=== PATIENT | male | born 1965 | race Hispanic/Latino ===

== ENCOUNTER 2018-02-06 18:47 | Emergency (ER) | payer BC ==
[2018-02-06 19:51] LABS: #Basophils 0.1 thou/uL (0.0-0.2); #Lymphocytes 2.5 thou/uL (1.20-3.40); #Monocytes 0.7 thou/uL (0.11-0.59); #Neutrophils 7.1 thou/uL (1.40-6.50); %Basophils 0.9 % (0.0-1.0); %Eosinophils 0.5 % (0.0-10.0); %Lymphocytes 24.2 % (21.0-51.0); %Monocytes 6.6 % (0.0-10.0); %Neutrophils 67.8 % (42.0-75.0); Hemoglobin 13.7 g/dL (14.0-18.0); Mean Corpuscular HGB CONC 35.1 g/dL (32.0-36.0); Mean Corpuscular Hemoglobin 31.6 pg (27.0-31.0); Mean Corpuscular Volume 90.1 fL (78.0-98.0); Mean Platelet Volume 6.9 fL (7.4-10.4); Platelet Count 242 thou/uL (130-400); RBC Distribution Width 10.7 % (11.5-14.5); Red Blood Cell (RBC) Count 4.34 mill/uL (4.70-6.10); White Blood Cell (WBC) Count 10.4 thou/uL (4.8-10.8)
[2018-02-06 20:03] LABS: Anion Gap 13 mmol/L (10-20); BUN (Urea Nitrogen) 16 mg/dL (8.4-25.7); Calc. Creatinine Clearance 0 mL/min (70-130); Calcium 9.4 mg/dL (7.8-10.44); Carbon Dioxide 25 mmol/L (22-29); Chloride 104 mmol/L (98-107); Estimated GFR-MDRD 88; Glucose 95 mg/dL (70-105); Potassium 4.1 mmol/L (3.5-5.1); Sodium 138 mmol/L (136-145)
[2018-02-06] MEDS ORDERED: Sodium Chloride 0.9% 100 ML ONE (21:04)
[2018-02-06] MEDS ORDERED: cefTRIAXone\\ROCEPHIN 2 GM VIAL ONE (21:04)
--- NOTE | 2018-02-06 21:15 | ULT ---
BILATERAL LOWER EXTREMITY VENOUS DOPPLER 02/06/18 HISTORY: Lower extremity pain and edema. COMPARISON: None. TECHNIQUE: Real time canas scale, color doppler and spectral analysis bilateral lower extremity venous system was performed. Common femoral, femoral, proximal portions greater saphenous and deep femoral veins as we ll as the popliteal and posterior tibial veins are interrogated. There is normal flow, augmentation and compression. IMPRESSION: No deep venous thrombosis. POS: JOSE MANUEL
== END 2018-02-06 22:13 | disposition home or self-care (01) ==
LOC: SCSER 18:47
DX: L03.116 Cellulitis of left lower limb (principal); K21.9 Gastro-esophageal reflux disease without esophagitis; Z87.442 Personal history of urinary calculi
CPT/HCPCS: 80048; 83605; 85025; 85379; 87040; 93970; 96365; J0696; J7050

== ENCOUNTER 2018-02-27 10:29 | Outpatient (CLI) | payer BC ==
--- NOTE | 2018-02-27 11:23 | RAD ---
LEFT KNEE 4 VIEWS: HISTORY: Acute left knee pain. FINDINGS/IMPRESSION: No fracture, dislocation, or bony destruction is identified. A joint effusion is present. POS: JORGE
== END 2018-02-27 10:30 | disposition home or self-care (01) ==
LOC: BICRAD 10:29
PROVIDERS: ATTEND Family Medicine
DX: M25.562 Pain in left knee (principal); M25.462 Effusion, left knee

== ENCOUNTER 2019-07-27 07:23 | Emergency (ER) | payer BC ==
[2019-07-27] MEDS ORDERED: Ondansetron ODT 4 MG TAB ONE (07:35)
[2019-07-27 08:01] LABS: #Basophils 0.1 thou/uL (0.0-0.2); #Eosinphils 0.1 thou/uL (0.0-0.7); #Lymphocytes 2.3 thou/uL (1.20-3.40); #Monocytes 0.3 thou/uL (0.11-0.59); #Neutrophils 2.4 thou/uL (1.40-6.50); %Basophils 1.6 % (0.0-1.0); %Eosinophils 1.4 % (0.0-10.0); %Lymphocytes 45.1 % (21.0-51.0); %Monocytes 5.2 % (0.0-10.0); %Neutrophils 46.8 % (42.0-75.0); Hemoglobin 14.6 g/dL (14.0-18.0); Mean Corpuscular HGB CONC 34.5 g/dL (32.0-36.0); Mean Corpuscular Hemoglobin 32.6 pg (27.0-31.0); Mean Corpuscular Volume 94.4 fL (78.0-98.0); Mean Platelet Volume 7.3 fL (7.4-10.4); Platelet Count 246 thou/uL (130-400); RBC Distribution Width 12.2 % (11.5-14.5); Red Blood Cell (RBC) Count 4.47 mill/uL (4.70-6.10); White Blood Cell (WBC) Count 5.2 thou/uL (4.8-10.8)
[2019-07-27] MEDS ORDERED: Ketorolac Tromethamine 30 MG/ML VIAL ONE (08:11)
[2019-07-27 08:16] LABS: ALT (SGPT) 40 U/L (8-55); AST (SGOT) 23 U/L (5-34); Albumin 4.3 g/dL (3.5-5.0); Alkaline Phosphatase 111 U/L (40-110); Anion Gap 10 mmol/L (10-20); BUN (Urea Nitrogen) 15 mg/dL (8.4-25.7); Bilirubin, Total 0.7 mg/dL (0.2-1.2); Calc. Creatinine Clearance 0 mL/min (70-130); Carbon Dioxide 25 mmol/L (22-29); Chloride 105 mmol/L (98-107); Estimated GFR-MDRD 76; Glucose 145 mg/dL (70-105); Potassium 4.3 mmol/L (3.5-5.1); Protein, Total 7.3 g/dL (6.0-8.3); Sodium 136 mmol/L (136-145)
[2019-07-27 08:29] LABS: Bacteria/HPF None Seen HPF (None Seen); Bilirubin Negative (Negative); Blood, Urine 1+ (Negative); Clarity Clear (Clear); Glucose, Urine (Dipstick) 30 mg/dL (Negative); Leukocyte Negative Leu/uL (Negative); Nitrite Negative (Negative); Protein, Urine (Dipstick) 20 mg/dL (Neg-Trace); RBC/HPF 0-3 HPF (0-3); Squamous Epithelial 0-3 HPF (0-3); Urobilinogen Normal mg/dL (Less than 2); WBC/HPF 0-3 HPF (0-3)
--- NOTE | 2019-07-27 08:39 | CT ---
CT OF THE ABDOMEN AND PELVIS WITHOUT CONTRAST: Date: 07/27/2019 INDICATION: History of left-sided flank pain. COMPARISON: Prior exam dated 11/12/2016. FINDINGS: There is mild bibasilar atelectasis. There is a stable small cyst within the left hepatic lobe. Gallbladder, pancreas, and adrenal glands are normal appearing. Spleen is normal appearing. There is a 2.1 cm suspected cyst within the superior pole of the left kidney. There is mild left hydr onephrosis. There is a 4.6 mm stone in the proximal left ureter. No additional renal or ureteral calc ulus is evident. Unopacified right kidney is unremarkable appearing. No hydronephrosis is evident. Th e bladder is partially decompressed. There are scattered diverticula involving the colon without evidence of active diverticulitis. There is a normal appendix in the right lower quadrant. No free fluid is evident. The prostate is enlarged. No definite acute osseous abnormality is evident. IMPRESSION: 1. 4.6 mm proximal left ureteral calculus and mild left hydronephrosis. 2. Left renal cyst. 3. Small left hepatic lobe cyst. 4. Prostate enlargement. 5. Colonic diverticulosis. POS: OFF
[2019-07-27] MEDS ORDERED: Morphine 4 MG/ML VIAL ONE (09:05)
[2019-07-27] MEDS ORDERED: Ondansetron PF 4 MG/2 ML Vial ONE (09:05)
== END 2019-07-27 10:32 | disposition home or self-care (01) ==
LOC: ERS 07:23
DX: N13.2 Hydronephrosis with renal and ureteral calculous obstruction (principal); N28.1 Cyst of kidney, acquired; R11.2 Nausea with vomiting, unspecified; K21.9 Gastro-esophageal reflux disease without esophagitis; Z79.899 Other long term (current) drug therapy
CPT/HCPCS: 36415; 74176; 80053; 81003; 81015; 85025; 96361; 96374; 96375; J1885; J2270; J2405; Q0162

== ENCOUNTER 2019-07-29 10:25 | Emergency (ER) | payer BC ==
[2019-07-29 11:00] LABS: #Lymphocytes 1.3 thou/uL (1.20-3.40); #Monocytes 0.5 thou/uL (0.11-0.59); #Neutrophils 8.4 thou/uL (1.40-6.50); %Basophils 0.1 % (0.0-1.0); %Eosinophils 0.1 % (0.0-10.0); %Lymphocytes 12.3 % (21.0-51.0); %Monocytes 4.9 % (0.0-10.0); %Neutrophils 82.7 % (42.0-75.0); Hemoglobin 13.7 g/dL (14.0-18.0); Mean Corpuscular HGB CONC 34.2 g/dL (32.0-36.0); Mean Corpuscular Hemoglobin 32.1 pg (27.0-31.0); Mean Corpuscular Volume 93.9 fL (78.0-98.0); Mean Platelet Volume 7.1 fL (7.4-10.4); Platelet Count 236 thou/uL (130-400); Red Blood Cell (RBC) Count 4.27 mill/uL (4.70-6.10); White Blood Cell (WBC) Count 10.1 thou/uL (4.8-10.8)
[2019-07-29 11:00] LABS: Bacteria/HPF None Seen HPF (None Seen); Bilirubin Negative (Negative); Blood, Urine Trace (Negative); Clarity Clear (Clear); Glucose, Urine (Dipstick) 200 mg/dL (Negative); Leukocyte Negative Leu/uL (Negative); Nitrite Negative (Negative); Protein, Urine (Dipstick) 30 mg/dL (Neg-Trace); RBC/HPF 0-3 HPF (0-3); Squamous Epithelial None Seen HPF (0-3); Urobilinogen Normal mg/dL (Less than 2); WBC/HPF 0-3 HPF (0-3)
[2019-07-29 11:21] LABS: ALT (SGPT) 32 U/L (8-55); AST (SGOT) 18 U/L (5-34); Albumin 4.3 g/dL (3.5-5.0); Alkaline Phosphatase 106 U/L (40-110); Anion Gap 14 mmol/L (10-20); BUN (Urea Nitrogen) 20 mg/dL (8.4-25.7); Bilirubin, Total 1.2 mg/dL (0.2-1.2); Calc. Creatinine Clearance 0 mL/min (70-130); Carbon Dioxide 25 mmol/L (22-29); Chloride 102 mmol/L (98-107); Estimated GFR-MDRD 48; Glucose 130 mg/dL (70-105); Potassium 4.6 mmol/L (3.5-5.1); Protein, Total 7.3 g/dL (6.0-8.3); Sodium 136 mmol/L (136-145)
[2019-07-29] MEDS ORDERED: Morphine 4 MG/ML VIAL ONE (11:59)
[2019-07-29] MEDS ORDERED: Ketorolac Tromethamine 30 MG/ML VIAL ONE (12:00)
[2019-07-29] MEDS ORDERED: Ondansetron PF 4 MG/2 ML Vial ONE (12:00)
== END 2019-07-29 13:46 | disposition home or self-care (01) ==
LOC: ERS 10:25
DX: N13.2 Hydronephrosis with renal and ureteral calculous obstruction (principal); K21.9 Gastro-esophageal reflux disease without esophagitis; Z87.442 Personal history of urinary calculi; Z79.899 Other long term (current) drug therapy
CPT/HCPCS: 36415; 80053; 81003; 81015; 85025; 87086; 96361; 96374; 96375; J1885; J2270; J2405

== ENCOUNTER 2019-08-02 12:59 | Inpatient (IN) | payer BC ==
[2019-08-02] MEDS ORDERED: Morphine 2 MG/ML SYRINGE SLOW IVP PRN (16:36)
[2019-08-02] MEDS ORDERED: Mag-Al 1200 mg/1200 mg/30 ML UDCUP PO PRN (16:36)
[2019-08-02] MEDS ORDERED: Bisacodyl 10 MG SUPP PR PRN (16:36)
[2019-08-02] MEDS ORDERED: diphenhydrAMINE 25 MG CAP PO PRN (16:36)
[2019-08-02] MEDS ORDERED: hydrALAZINE 20 MG/ML VIAL SLOW IVP PRN (16:36)
[2019-08-02] MEDS ORDERED: HYDROcodone/Acetaminophen 5/325 mg Tablet PO PRN (16:36)
[2019-08-02] MEDS ORDERED: Ondansetron PF 4 MG/2 ML Vial IVP PRN (16:36)
[2019-08-02 16:57] LABS: #Lymphocytes 1.5 thou/uL (1.20-3.40); #Monocytes 0.5 thou/uL (0.11-0.59); #Neutrophils 5.2 thou/uL (1.40-6.50); %Basophils 0.3 % (0.0-1.0); %Eosinophils 0.7 % (0.0-10.0); %Lymphocytes 20.7 % (21.0-51.0); %Monocytes 6.7 % (0.0-10.0); %Neutrophils 71.7 % (42.0-75.0); Hemoglobin 13.9 g/dL (14.0-18.0); Mean Corpuscular HGB CONC 34.3 g/dL (32.0-36.0); Mean Corpuscular Hemoglobin 32.4 pg (27.0-31.0); Mean Corpuscular Volume 94.3 fL (78.0-98.0); Mean Platelet Volume 6.7 fL (7.4-10.4); Platelet Count 281 thou/uL (130-400); RBC Distribution Width 11.7 % (11.5-14.5); White Blood Cell (WBC) Count 7.2 thou/uL (4.8-10.8)
[2019-08-02 17:24] LABS: ALT (SGPT) 47 U/L (8-55); AST (SGOT) 24 U/L (5-34); Albumin 4.5 g/dL (3.5-5.0); Alkaline Phosphatase 140 U/L (40-110); Anion Gap 12 mmol/L (10-20); BUN (Urea Nitrogen) 20 mg/dL (8.4-25.7); Calc. Creatinine Clearance 0 mL/min (70-130); Calcium 9.7 mg/dL (7.8-10.44); Carbon Dioxide 28 mmol/L (22-29); Chloride 100 mmol/L (98-107); Estimated GFR-MDRD 46; Globulin 3.7 g/dL (2.4-3.5); Glucose 83 mg/dL (70-105); Potassium 4.2 mmol/L (3.5-5.1); Protein, Total 8.2 g/dL (6.0-8.3); Sodium 136 mmol/L (136-145)
--- NOTE | 2019-08-02 17:32 | HP ---
REASON FOR ADMISSION: Uncontrolled nausea and vomiting with acute kidney injury and left ureteral stone. CHIEF COMPLAINT: "I don't feel well and I have this stone." HISTORY OF PRESENT ILLNESS: Mr. Medrano is a 54-year-old male who has a history of nephrolithiasis, who initially presented to the emergency room on July 26 of last week with left flank pain. He was diagnosed with approximately 4.6 mm left proximal ureteral stone with hydronephrosis. He was set up to see me as an outpatient, but was sent home at that time with pain medication and nausea medication. This worked for approximately two days, but then the patient began having nausea and vomiting again, which was uncontrolled, so they went back to the emergency room. He was again discharged with additional pain medications and told to keep close followup with Urology. Unfortunately, the patient has again presented with uncontrolled nausea and vomiting, uncontrolled pain and states he cannot wait until his appointment. He has presented back to the emergency room at which time I have seen him. On my discussion with the patient, he states he feels weak and lethargic. He is nauseated. He has continued to vomit. He still has uncontrolled left flank pain, which is extremely bothersome to him. He has not had any gross hematuria. He denies any fevers. He has no history of urinary tract infections, but has had multiple previous stones, mostly all in the right. He denies any voiding difficulties currently. ALLERGIES: NONE. HOME MEDICATIONS: 1. Nexium. 2. Toradol. 3. Hydrocodone/Tylenol. 4. Tylenol No.3. 5. Zofran. PAST MEDICAL HISTORY: 1. Nephrolithiasis. 2. Gastroesophageal reflux disease. PAST SURGICAL HISTORY: None. FAMILY HISTORY: Noncontributory for stone disease. SOCIAL HISTORY: The patient drinks socially, generally once a week. Denies illicit drug use and denies any tobacco abuse. He is and is with his . REVIEW OF SYSTEMS: A 12-point review of system was reviewed and negative other than what was commented on the HPI. PHYSICAL EXAMINATION: VITAL SIGNS: Temperature 98.4, pulse 72, respirations 16, blood pressure 125/86, and saturation 97% on room air. GENERAL: The patient appears uncomfortable and nauseated. He looks unwell but is answering questions appropriately. Well nourished, well developed, appears stated age, overweight. HEENT: Normocephalic, atraumatic. Pupils are symmetric and round. Trachea midline. Dry mucous membranes. CARDIOVASCULAR: Regular rate and rhythm. Normal S1, S2. Symmetric pulses. No significant lower extremity varicosities. CHEST: No increased work of breathing. Symmetric expansion. LUNGS: Clear anteriorly. ABDOMEN: Soft, nondistended, tender to palpation on the left with left CVA tenderness, which is relatively mild. No organomegaly or masses. No hernias. : Deferred at this time. EXTREMITIES: No clubbing, cyanosis, or edema. MUSCULOSKELETAL: No joint deformity or joint erythema noted. Full range of motion. SKIN: Warm dry. No rash or lesions. Good turgor. NEUROLOGIC: Cranial nerves 2 through 12 grossly intact. No focal or sensory motor deficits identified. LYMPH NODES: No enlarged lymph nodes or lymphadenopathy in the supraclavicular, axillary, or inguinal regions. PSYCHIATRIC: Alert and oriented x3. Appropriate mood and affect. LABORATORY EVALUATION: Full set of labs are in the [employer] system, which I have reviewed. Of note, the most recent set of labs were done July 28, which demonstrated significantly a creatinine of 1.53. White count was 10.1. CT from July 26 at the original presentation demonstrates a 4.6 mm proximal left ureteral calculus with mild hydronephrosis, a left renal cyst and small left hepatic lobe cyst. No additional stones are identified. ASSESSMENT AND PLAN: 1. A 54-year-old male with a proximal left ureteral stone measuring about 4.6 mm, causing uncontrolled and refractory nausea and vomiting, and uncontrolled pain with evidence of an acute kidney injury, now which is likely secondary to dehydration. At this point with three presentations to the emergency room, I would not recommend medical expulsive therapy or trial of passage in this patient. I do think that he would do best coming into the hospital for 23 hour observation and pain control with IV and oral pain medication, emesis control with IV antiemetics, IV fluids for rehydration and taking him to the OR tomorrow for a cystoscopy and left ureteral stent. I explained how a stent is done and the postoperative recovery. Risks and benefits of the procedure were discussed including risks of bleeding, infection, damage to the ureter, ureteral stricture, perforation, inability to pass the stent, and need for further procedures. He understands these risks and wishes to proceed forward with the stent placement. I would then plan to bring him back on Friday electively for a scheduled ureteroscopy and laser lithotripsy at that time. PLAN: 1. Place in 23 hour observation in the hospital. 2. N.p.o. after midnight. 3. IV fluid resuscitation. 4. Pain and nausea control, IV and oral medicines. 5. Levofloxacin 500 mg IV on-call to the OR. 6. We will plan definitive ureteroscopy on Friday. Job ID: [id number]
[2019-08-02] MEDS: Sodium Chloride 0.9% 1,000 ML IV SCH (17:56)
[2019-08-02] MEDS: HYDROcodone/Acetaminophen 5/325 mg Tablet PO PRN ×2 (18:51→23:35)
[2019-08-02] MEDS: Docusate 100 MG CAP PO SCH (20:18)
[2019-08-02] MEDS: Morphine 4 MG/ML VIAL SLOW IVP PRN (22:07)
[2019-08-02 23:41] VITALS: BMI 29.7
[2019-08-03] MEDS: Morphine 4 MG/ML VIAL SLOW IVP PRN ×2 (00:34→06:41)
[2019-08-03] MEDS: Sodium Chloride 0.9% 1,000 ML IV SCH ×3 (02:00→21:55)
[2019-08-03] MEDS: HYDROcodone/Acetaminophen 5/325 mg Tablet PO PRN (05:05)
[2019-08-03] MEDS ORDERED: Levofloxacin 500 mg/D5W 100 ml Premix Bag ONE (07:56)
[2019-08-03] MEDS ORDERED: Dexamethasone 20 MG/5 ML VIAL ONE (10:00)
[2019-08-03] MEDS ORDERED: PROPOFOL 200 MG/20 ML VIAL ONE (10:00)
[2019-08-03] MEDS ORDERED: Ondansetron PF 4 MG/2 ML Vial ONE (10:00)
[2019-08-03] MEDS ORDERED: Iothalamate Meglumine 60% 50 ML VIAL FS ONE (10:20)
[2019-08-03] MEDS ORDERED: Fentanyl 100 MCG/2 ML VIAL ONE ×2 (10:20→10:30)
[2019-08-03] MEDS ORDERED: Ondansetron HCl/PF 4 MG/2 ML Vial IVP PRN (11:08)
[2019-08-03] MEDS ORDERED: Promethazine HCl 25 MG/ML VIAL SLOW IVP PRN (11:08)
[2019-08-03] MEDS ORDERED: Promethazine HCl 25 MG/ML VIAL IM PRN (11:08)
[2019-08-03] MEDS: Docusate 100 MG CAP PO SCH ×2 (13:17→20:16)
--- NOTE | 2019-08-03 14:52 | OP ---
DATE OF PROCEDURE: 08/03/2019 SERVICE: Urology. PREOPERATIVE DIAGNOSIS: Left ureteral stone with acute kidney injury. POSTOPERATIVE DIAGNOSIS: Left ureteral stone with acute kidney injury. PROCEDURE PERFORMED: Cystoscopy with left ureteral stent placement. INDICATION FOR PROCEDURE: Mr. Medrano is a 54-year-old male, who initially presented with left flank pain approximately a week ago. He has been to the ER three times now with severe left flank pain, refractory vomiting and evidence of acute kidney injury. I recommended we bring him in for ureteral stent placement urgently since he is not doing well as an outpatient. Risks and benefits of the cystoscopy were discussed, and he has agreed to proceed forward. DESCRIPTION OF PROCEDURE: After identification of armband and verification of consent, the patient was brought back to the operating room, where he underwent general anesthesia with an LMA. He was then placed in a dorsal lithotomy position and prepped and draped in usual sterile fashion. After appropriate time-out, a lubricated 22-[place] rigid cystoscope was introduced per urethra into the bladder. The prostate was slightly hypertrophic with a slight median lobe and hypertrophy of the lateral lobes with some evidence of obstruction. The bladder was otherwise unremarkable without any significant findings. Both ureters were in orthotopic location. The left ureteral orifice was cannulated with a 0.035 Sensor wire up to the level of renal pelvis. A 6 x 26 double-J stent was then advanced over the Sensor wire up to the level of renal pelvis, and then the wire was removed leaving a partial curl in the kidney and a good curl in the bladder. The bladder was then drained, and cystoscope was removed. The patient was then awakened, taken to PACU for recovery in stable condition. COMPLICATIONS: None. ESTIMATED BLOOD LOSS: Minimal. RETAINED TUBES AND DRAINS: 6 x 26 double-J stent on the left. SPECIMENS: None. DISPOSITION: The patient will be discharged home tomorrow. We will plan for labs in the morning to ensure his kidney injury is resolved. At which point, he can go home and we will plan a followup on Friday for cystoscopy and ureteroscopy and removal of the stone at that time. Job ID: [id number]
[2019-08-03] MEDS: Oxybutynin 5 MG TAB PO PRN (17:00)
[2019-08-04] MEDS: Oxybutynin 5 MG TAB PO PRN (01:06)
[2019-08-04 06:12] LABS: Anion Gap 12 mmol/L (10-20); BUN (Urea Nitrogen) 19 mg/dL (8.4-25.7); Calc. Creatinine Clearance 87 mL/min (70-130); Carbon Dioxide 23 mmol/L (22-29); Chloride 105 mmol/L (98-107); Estimated GFR-MDRD 66; Glucose 106 mg/dL (70-105); Potassium 4.3 mmol/L (3.5-5.1); Sodium 136 mmol/L (136-145)
[2019-08-04] MEDS: Docusate 100 MG CAP PO SCH (08:46)
[2019-08-04] MEDS ORDERED: Non-Formulary Item 1 EACH (Fluticasone Propionate [Flovent Diskus] 1 SPRAY) NASAL SCH (09:00)
[2019-08-04 11:03] VITALS: BP 120/80; TEMP 98.1
--- NOTE | 2019-08-04 11:19 | PRG ---
DATE OF SERVICE: 08/04/2019 SUBJECTIVE: The patient states he is feeling much better. He has no more nausea or vomiting. His creatinine is improved. He has minimal pain. He states he is urinating relatively well, although very often. OBJECTIVE: VITAL SIGNS: Temperature 98.1, pulse 66, respirations 14, blood pressure 120/80, saturations 95% on room air. GENERAL: No apparent distress, communicative, alert. CARDIOVASCULAR: Regular rate and rhythm. ABDOMEN: Soft, nontender, and nondistended. Positive bowel sounds. CHEST: No increased work of breathing. EXTREMITIES: No edema. LABORATORY EVALUATION: Full set of labs are in the [employer] system, which I have reviewed. Of note, the patient's creatinine is currently 1.16, down from 1.57. ASSESSMENT AND PLAN: A 54-year-old male with a left ureteral stone status post left ureteral stent placement with expected postoperative urinary symptoms. I told him we can send him home on oxybutynin to help with the bladder control symptoms. He already has pain medication at home from his previous ER visit. I have gone over his aftercare and told him that we will plan for ureteroscopy on Friday. His prior urine culture was negative and his UA was not concerning on most recent admission. As such, I do feel that we can proceed forward with ureteroscopy this Friday. We will plan for removal of the stone and replacement of the stent with a stent with a string that he could remove on his own. I went over the surgery in detail as well as the postoperative course and risks and benefits, risks which include, but are not limited to, bleeding, infection, damage to the ureter, ureteral injury, ureteral stricture, incomplete stone removal, need for further procedures or damage to the kidney or bladder. He understands these risks and wishes to proceed forward with ureteroscopy, which we will plan for Friday. Job ID: [id number]
--- NOTE | 2019-08-04 13:54 | DIS ---
DATE OF ADMISSION: 08/02/2019 DATE OF DISCHARGE: 08/04/2019 ADMITTING DIAGNOSIS: Left ureteral stone with acute kidney injury. DISCHARGE DIAGNOSIS: Left ureteral stone with acute kidney injury. PROCEDURE PERFORMED: While inpatient is cystoscopy, left ureteral stent placement. BRIEF HISTORY: Mr. Medrano is a 54-year-old male with left ureteral stone and three visits to the ER due to persistent nausea and vomiting. He is being admitted to the hospital secondary to acute kidney injury and pain control as well as control of his vomiting and emesis and placement of ureteral stent. For full H and P, please see the dictated portion of H and P in the [employer] system. HOSPITAL COURSE: After admission, the patient was kept on IV fluids with pain control, which he stated he was feeling better. He continued to have ongoing pain until he was taken on hospital day one for cystoscopy and left ureteral stent placement. He felt significantly better afterwards, but we elected to keep him in the hospital one additional day to ensure that his creatinine recovered, which it did. By postop day one, the patient had a creatinine which was normal. His pain had resolved and he was feeling much better. He was discharged home with plans to perform ureteroscopy later that week. DISPOSITION: Discharged to home. DISCHARGE CONDITION: Good. DISCHARGE MEDICATIONS: Please see discharge medication reconciliation. DISCHARGE INSTRUCTIONS: Discharge instructions were explained to the patient as well as when to call me or any other concerning signs or symptoms to look out for. I will see him on Friday for definitive ureteroscopy and removal of the stone. Job ID: [id number]
== END 2019-08-04 12:50 | disposition home or self-care (01) | DRG 661 ==
LOC: ERS 12:59 → SURG A 17:21 → OBSVTOIN 17:30
PROVIDERS: ADMIT Urology; ATTEND Urology
PROC: 0T778DZ Dilation of Left Ureter with Intraluminal Device, Via Natural or Artificial Opening Endoscopic (ICD-10-PCS; principal; 2019-08-03)
DX: N13.2 Hydronephrosis with renal and ureteral calculous obstruction (principal); N17.9 Acute kidney failure, unspecified; K21.9 Gastro-esophageal reflux disease without esophagitis; Z79.899 Other long term (current) drug therapy; Z87.442 Personal history of urinary calculi
CPT/HCPCS: 36415; 76000; 80048; 80053; 85025; C1769; J1100; J1956; J2270; J2405; J2704; J3010

== ENCOUNTER 2019-08-06 09:30 | Day surgery (SDC) | payer BC ==
[2019-08-05 11:20] VITALS: BMI 29.8
[2019-08-06] MEDS ORDERED: diphenhydrAMINE 50 MG/ML VIAL ONE (10:17)
[2019-08-06] MEDS ORDERED: PROPOFOL 200 MG/20 ML VIAL ONE (10:17)
[2019-08-06] MEDS ORDERED: Dexamethasone 20 MG/5 ML VIAL ONE (10:17)
[2019-08-06] MEDS ORDERED: Ondansetron PF 4 MG/2 ML Vial ONE (10:17)
--- NOTE | 2019-08-06 10:58 | RAD ---
XR Chest Pa Lat STANDARD HISTORY: Preop COMPARISON: None. FINDINGS: Heart size and mediastinum are within normal limits. The lungs are clear of any infiltrates there is linear change in left base which appears represent some minimal scar. IMPRESSION: No active intrathoracic disease
[2019-08-06] MEDS ORDERED: Midazolam HCl 2 mg/2 ml Vial ONE ×2 (12:34→12:38)
[2019-08-06] MEDS ORDERED: Fentanyl 100 MCG/2 ML VIAL ONE (12:38)
[2019-08-06] MEDS ORDERED: Levofloxacin 500 mg/D5W 100 ml Premix Bag ONE (13:12)
[2019-08-06] MEDS ORDERED: B & O ONE (13:46)
--- NOTE | 2019-08-06 14:02 | RAD ---
RETROGRADE PYELOGRAM: Date: 08/06/2019 HISTORY: Left-sided stone. COMPARISON: 07/27/2019 CT. FINDINGS: Two portable fluoroscopic spot images are performed. Initial image demonstrates stent and wire in ochoa ce. Follow-up imaging demonstrates catheters and wires in place in an attempt to remove the left uret eral calculus. IMPRESSION: Portable fluoroscopic spot images demonstrate stent, catheter, and wire placement for stone removal d ocumentation. POS: TPC
[2019-08-06] MEDS ORDERED: Oxybutynin 5 MG TAB ONE (15:27)
--- NOTE | 2019-08-06 16:37 | OP ---
DATE OF PROCEDURE: 08/06/2019 SERVICE: Urology. PREOPERATIVE DIAGNOSIS: Left ureteral stone. POSTOPERATIVE DIAGNOSIS: Left ureteral stone. PROCEDURE PERFORMED: Cystoscopy with left ureteroscopy, laser lithotripsy, basket extraction of stone, and replacement of a 6 x 26 double-J stent with a string attached. INDICATION FOR PROCEDURE: Mr. Marcela Mcintyre is a 54-year-old male, who initially presented to ut in the emergency room with severe left flank pain and acute kidney injury. He underwent urgent stenting at that time, which resulted in him feeling significantly better. His urine culture was negative. We elected to proceed with ureteroscopy and laser lithotripsy to remove the stone. Risks and benefits of the surgery have been discussed and he has agreed to proceed forward. DESCRIPTION OF PROCEDURE: After identification of armband and verification of consent, the patient was brought back to the operating room, where he underwent general anesthesia with an LMA. He was then placed in dorsal lithotomy position and prepped and draped in usual sterile fashion. After appropriate time-out, a lubricated 22-[place] rigid cystoscope was introduced per urethra into the bladder. Attention was turned to the left ureteral orifice, which there was a stent emanating. Flexible grasper was used to grasp the stent and bring it out to the level of the urethral meatus. A 0.035 Sensor wire was then used to cannulate the ureteral stent up to the level of renal pelvis. The stent was then removed and discarded. A dual-lumen catheter was then advanced over the Sensor wire into the level of the mid ureter, and an Amplatz Super Stiff wire was then passed through the second lumen of the dual-lumen up into the renal pelvis. The dual-lumen was then removed and 11 x 13-[place] x 46 cm ureteral access sheath was advanced with ease up the Super Stiff wire up to the level of the proximal ureter. The inner cannula and Super Stiff wire were then removed leaving the outer sheath and Sensor wire in place as a safety wire. A flexible digital ureteroscope was then passed through the ureteral access sheath into the renal pelvis. A full pyeloscopy was performed and there was nothing found other than some debris material and tiny stones. This indicated the stone was not actually at the UPJ anymore or in the renal pelvis, but probably in the ureter. Small blood clot was removed out of the kidney to avoid clot colic. Pull-back ureteroscopy was employed until the stone was found at the mid ureter. At this point, a 273 micron ball-tip laser fiber was used to fragment the stone into smaller pieces and then a 1.9-[place] ZeroTip Nitinol basket used to basket out the stone fragments and sent off for stone analysis. There was no mucosal injury other than some edema. Completion Pull-back ureteroscopy did not demonstrate any additional stones. The ureteroscope and sheath were then removed and a the cystoscope was back loaded into the bladder over the Sensor wire. A 6 x 26 double-J stent with string attached was advanced over the Sensor wire up to the level of renal pelvis. The wire was then removed leaving a good curl in the kidney and a good curl in the bladder. The cystoscope was then disassembled and removed leaving the string in place. This was then affixed to the patient's penis with a Tegaderm. The patient was then taken out of positioning, awakened, taken to PACU for recovery in stable condition. He did have a B and O suppository placed at the end of the case. COMPLICATIONS: None. ESTIMATED BLOOD LOSS: Minimal. RETAINED TUBES AND DRAINS: A 6 x 26 double-J stent on the left with string attached. SPECIMENS: Stone for stone analysis. DISPOSITION: The patient will be discharged home and follow up with me in 2 to 3 weeks. He will be instructed to remove his stents next Friday by gently pulling the string. Job ID: [id number]
== END 2019-08-06 17:20 | disposition home or self-care (01) ==
LOC: SDC 09:30
PROVIDERS: ATTEND Urology
PROC: 0T778DZ Dilation of Left Ureter with Intraluminal Device, Via Natural or Artificial Opening Endoscopic (ICD-10-PCS; principal; 2019-08-06)
PROC: 0TF78ZZ Fragmentation in Left Ureter, Via Natural or Artificial Opening Endoscopic (ICD-10-PCS; principal; 2019-08-06)
DX: N20.1 Calculus of ureter (principal)
CPT/HCPCS: 71046; 74420; 82365; 88300; 93005; 93010; C1769; J1100; J1200; J1956; J2250; J2405; J2704; J3010

== ENCOUNTER 2019-10-19 10:30 | Outpatient (CLI) | payer BC ==
--- NOTE | 2019-10-19 10:52 | ULT ---
Exam: Bilateral renal ultrasound HISTORY: Nephrolithiasis COMPARISON: None FINDINGS: Right kidney: Normal cortical echotexture. No hydronephrosis. Right kidney measurements: 5.5 x 4.9 x 10.8 cm. Left kidney: Normal cortical echotexture. Anechoic focus with posterior acoustic enhancement in the u pper pole the left kidney measures 1.9 x 2.2 x 1.7 cm, compatible with cyst. No hydronephrosis Left kidney measurements 5.4 x 7.3 x 10.6 cm. Urinary bladder: Normal mucosa. IMPRESSION: No hydronephrosis.
== END 2019-10-19 10:31 | disposition home or self-care (01) ==
LOC: BICULT 10:30
PROVIDERS: ATTEND Urology
DX: N20.0 Calculus of kidney (principal)
CPT/HCPCS: 76770

== ENCOUNTER 2019-10-26 14:35 | Outpatient (CLI) | payer BC ==
--- NOTE | 2019-10-26 16:44 | MRI ---
MR OF THE LEFT KNEE WITHOUT CONTRAST: 10/26/19 INDICATION; Left knee pain ongoing for two years after turning his left knee while dancing. Patient is having m edial and posterior left knee pain. COMPARISON: Prior left knee radiographs dated 02/27/18. FINDINGS: No large joint effusion is evident. There is a very tiny popliteal cyst. The ACL, PCL, MCL, and LCLC are intact. There is mild tendinosis involving the patellar tendon. There is a small amount of fluid in the deep infrapatellar bursa. There is subcutaneous edema overlying the patella and patellar tendon. There is a horizontal oriented tear involving the body, posterior horn, and posterior root of the med ial meniscus. Lateral meniscus is intact. The articular cartilage of the femorotibial components appears relatively well maintained. Articular cartilage of the patellofemoral compartment is reserved. IMPRESSION: 1. Medial meniscal tear. 2. Mild patellar tendinosis with mild deep infrapatellar bursitis. 3. Soft tissue edema overlying the anterior aspect of the left knee may reflect a mild prepatell ar bursitis or prior hematoma. Recommend correlation. POS: NANCI
== END 2019-10-26 14:36 | disposition home or self-care (01) ==
LOC: BICMRI 14:35
PROVIDERS: ATTEND Family Medicine
DX: M23.92 Unspecified internal derangement of left knee (principal); M79.89 Other specified soft tissue disorders; S83.242A Other tear of medial meniscus, current injury, left knee, initial encounter; M67.864 Other specified disorders of tendon, left knee; M70.42 Prepatellar bursitis, left knee

== ENCOUNTER 2019-12-06 04:43 | Outpatient (CLI) | payer BC, OTHER ==
[2019-12-06 14:35] LABS: #Basophils 0.1 thou/uL (0.0-0.2); #Eosinphils 0.1 thou/uL (0.0-0.7); #Lymphocytes 2.5 thou/uL (1.20-3.40); #Monocytes 0.2 thou/uL (0.11-0.59); #Neutrophils 2.5 thou/uL (1.40-6.50); %Basophils 1.4 % (0.0-1.0); %Eosinophils 1.5 % (0.0-10.0); %Lymphocytes 46.7 % (21.0-51.0); %Monocytes 4.2 % (0.0-10.0); %Neutrophils 46.2 % (42.0-75.0); Hemoglobin 14.3 g/dL (14.0-18.0); Mean Corpuscular HGB CONC 34.1 g/dL (32.0-36.0); Mean Corpuscular Hemoglobin 32.4 pg (27.0-31.0); Mean Corpuscular Volume 95.1 fL (78.0-98.0); Mean Platelet Volume 7.7 fL (7.4-10.4); Platelet Count 247 thou/uL (130-400); RBC Distribution Width 12.2 % (11.5-14.5); Red Blood Cell (RBC) Count 4.41 mill/uL (4.70-6.10); White Blood Cell (WBC) Count 5.3 thou/uL (4.8-10.8)
[2019-12-06 15:34] LABS: Anion Gap 13 mmol/L (10-20); BUN (Urea Nitrogen) 18 mg/dL (8.4-25.7); Calc. Creatinine Clearance 0 mL/min (70-130); Calcium 8.8 mg/dL (7.8-10.44); Carbon Dioxide 21 mmol/L (22-29); Chloride 108 mmol/L (98-107); Estimated GFR-MDRD 80; Glucose 147 mg/dL (70-105); Potassium 3.8 mmol/L (3.5-5.1); Sodium 138 mmol/L (136-145)
[2019-12-07 14:02] LABS: SARS-CoV-2 MS2 Positive; SARS-CoV-2 N Gene Negative; SARS-CoV-2 S Gene Negative; SARS-CoV-2 orf1ab Negative
== END 2019-12-06 04:44 | disposition home or self-care (01) ==
LOC: LABBT 04:43
PROVIDERS: ATTEND Orthopaedic Surgery
DX: Z01.818 Encounter for other preprocedural examination (principal); Z11.59 Encounter for screening for other viral diseases; S83.242A Other tear of medial meniscus, current injury, left knee, initial encounter
CPT/HCPCS: 80048; 85025; 87635; 93005; 93010; U0003

== ENCOUNTER 2019-12-09 06:37 | Day surgery (SDC) | payer BC ==
[2019-12-07 14:52] VITALS: BMI 29.8
[2019-12-09] MEDS ORDERED: Fentanyl 100 MCG/2 ML VIAL ONE (06:53)
[2019-12-09] MEDS ORDERED: PROPOFOL 20 ML ONE (07:35)
[2019-12-09] MEDS ORDERED: Lidocaine 1% PF 5 ML VIAL ONE (08:30)
[2019-12-09] MEDS ORDERED: EPHEDRINE 25 MG/5 ML SYRINGE ONE (08:30)
[2019-12-09] MEDS ORDERED: Dexamethasone 20 MG/5 ML VIAL ONE (08:30)
[2019-12-09] MEDS ORDERED: PROPOFOL 200 MG/20 ML VIAL ONE (08:30)
[2019-12-09] MEDS ORDERED: Ondansetron PF 4 MG/2 ML Vial ONE (08:30)
[2019-12-09] MEDS ORDERED: Ketorolac Tromethamine 30 MG/ML VIAL ONE (08:30)
--- NOTE | 2019-12-09 09:47 | OP ---
DATE OF PROCEDURE: 12/09/2019 PREOPERATIVE DIAGNOSIS: Medial meniscus tear, left knee. POSTOPERATIVE DIAGNOSIS: Medial meniscus tear, left knee. PROCEDURE PERFORMED: Arthroscopic partial medial meniscectomy. ANESTHESIA: General. BLOOD LOSS: Minimal. SPECIMENS: None. DRAINS: None. COMPLICATIONS: None. DESCRIPTION OF PROCEDURE: The patient was taken to the operating room where general anesthesia was induced. Left leg was prepped and draped in the usual sterile fashion. No tourniquet was used. The scope was placed in the lateral portal and probe was placed in the medial portal. Findings at surgery were complex tear involving most of the posterior horn of the medial meniscus and small area of grade 3 chondromalacia in the posterior medial femoral condyle, otherwise intact joint. I used a basket forceps to do partial meniscectomy, smooth the edges with a 4.0 full-radius resector, then probed the meniscus and confirmed it was stable. The knee was irrigated. I swept the gutters in the pouch for loose bodies, there were none. Knee was drained. Sterile dressings applied. Job ID: [id number]
[2019-12-09] MEDS ORDERED: Lidocaine 2% w/Epinephrine 1:200K 20 ML VIAL ONE (12:12)
[2019-12-09] MEDS ORDERED: Bupivacaine HCl 0.5%/Epinephrine 1:200,000/PF 30 ml Vial ONE (12:12)
== END 2019-12-09 11:10 | disposition home or self-care (01) ==
LOC: SDC 06:37
PROVIDERS: ATTEND Orthopaedic Surgery
PROC: 0SBD4ZZ Excision of Left Knee Joint, Percutaneous Endoscopic Approach (ICD-10-PCS; principal; 2019-12-09)
DX: S83.232A Complex tear of medial meniscus, current injury, left knee, initial encounter (principal); M94.262 Chondromalacia, left knee; Z79.899 Other long term (current) drug therapy; X50.1XXA Overexertion from prolonged static or awkward postures, initial encounter; Y93.41 Activity, dancing
CPT/HCPCS: J0670; J0690; J1100; J1885; J2405; J2704; J3010

== ENCOUNTER 2021-02-12 11:52 | Outpatient (CLI) | payer BC ==
[2021-02-12 14:02] LABS: #Basophils 0.1 10x3/uL (0.0-0.2); #Eosinphils 0.1 10x3/uL (0.0-0.5); #Monocytes 0.5 10x3/uL (0.0-1.1); #Neutrophils 3.1 10x3/uL (1.5-8.4); %Basophils 1.1 % (0.0-2.0); %Eosinophils 1.1 % (0.0-6.0); %Lymphocytes 40.7 % (18.0-47.0); %Monocytes 7.4 % (0.0-10.0); %Neutrophils 49.4 % (40.0-75.0); Hemoglobin 13.4 g/dL (13.5-17.5); Mean Corpuscular HGB CONC 32.2 g/dL (32.0-36.0); Mean Corpuscular Hemoglobin 30.3 pg (27.0-33.0); Mean Corpuscular Volume 94.1 fl (81.2-95.1); Mean Platelet Volume 9.7 fl (7.4-10.4); Platelet Count 274 10x3/uL (150-450); RBC Distribution Width 12.1 % (11.5-14.5); Red Blood Cell (RBC) Count 4.42 10x6/uL (4.32-5.72); White Blood Cell (WBC) Count 6.2 10x3/uL (3.5-10.5)
[2021-02-12 14:41] LABS: Anion Gap 15 mmol/L (10-20); BUN (Urea Nitrogen) 20 mg/dL (8.4-25.7); Calc. Creatinine Clearance 0 mL/min (70-130); Calcium 9.5 mg/dL (7.8-10.44); Carbon Dioxide 26 mmol/L (22-29); Chloride 104 mmol/L (98-107); Glucose 83 mg/dL (70-105); Potassium 4.5 mmol/L (3.5-5.1); Sodium 140 mmol/L (136-145)
[2021-02-13 08:56] LABS: SARS-CoV-2 PCR by NAA Not Detected (NotDetected)
== END 2021-02-12 11:53 | disposition home or self-care (01) ==
LOC: LABBT 11:52
PROVIDERS: ATTEND Internal Medicine Cardiovascular Disease
DX: Z01.818 Encounter for other preprocedural examination (principal); Q23.1 Congenital insufficiency of aortic valve; Z20.822 Contact with and (suspected) exposure to COVID-19
CPT/HCPCS: 80048; 85025; 93005; 93010; U0003; U0005

== ENCOUNTER 2021-02-15 10:03 | Day surgery (SDC) | payer BC ==
[2021-02-13 13:55] VITALS: BMI 29.2
[2021-02-15] MEDS ORDERED: PROPOFOL 20 ML ONE (11:59)
== END 2021-02-15 13:24 | disposition home or self-care (01) ==
LOC: CCL 10:03
PROVIDERS: ATTEND Internal Medicine Cardiovascular Disease
PROC: B24BZZ4 Ultrasonography of Heart with Aorta, Transesophageal (ICD-10-PCS; principal; 2021-02-15)
DX: Q21.1 Atrial septal defect (principal); Q23.1 Congenital insufficiency of aortic valve; I50.9 Heart failure, unspecified; I45.10 Unspecified right bundle-branch block; K21.9 Gastro-esophageal reflux disease without esophagitis; Z86.16 Personal history of COVID-19; Z79.899 Other long term (current) drug therapy
CPT/HCPCS: 93312; J2704

== ENCOUNTER 2021-03-23 11:38 | Outpatient (CLI) | payer BC ==
[~2021-03-23 11:38] MED LIST: Iopamidol 370 76% 100 ML VIAL ONE
== END 2021-03-23 11:39 | disposition home or self-care (01) ==
LOC: CT 11:38
PROVIDERS: ATTEND Internal Medicine Cardiovascular Disease
DX: Q23.1 Congenital insufficiency of aortic valve (principal)
CPT/HCPCS: 71275; Q9967